=== PATIENT | female | born 1970 | race African-American/Black ===

== ENCOUNTER → 2017-02-11 | Outpatient (CLI) | payer OTHER ==
[~2017-02-11] MED LIST: DICY1TAB26 PO; DIOV80TA4 PO; GLUCTAB PO; HYDR12.56 PO; PERC5TAB12 PO
--- NOTE | 2017-02-11 12:55 | TR ---
Date Performed: 02/11/2017 Time Performed: 12:26:43 DOCTOR: Dante Ayers DRUG LIST: CLINICAL HISTORY: REASON FOR TEST: REASON FOR ENDING: OBSERVATION: CONCLUSION: Hu protocol completed. Stopped sec to exceeding target heart rate and leg fatigue . Maximum NM=077 Target HR Achieved=92.0% Maximum HY=077/78 Total Exercise Time=6:01. No reprod chest discomfort. Occassional PACs. No st depression to sugg ischemia. Normal bp response. Recovery quick and unremarkable. COMMENTS: Conclusion: Normal treadmill exercise. No evidence of ischemia.
== END ==
LOC: HCAV 12:04
PROVIDERS: ATTEND Family Medicine
DX: R07.9 Chest pain, unspecified (principal)
CPT/HCPCS: 93017

== ENCOUNTER 2018-08-21 08:02 | Observation (INO) ==
[2018-08-21] MEDS ORDERED: Heparin - SQ 10,000 UNITS/ML Vial SQ SCH (09:00)
[2018-08-21] MEDS ORDERED: Sodium Chlor 0.9% Inj 500 ML IV.CONT ONE (09:00)
[2018-08-21] MEDS ORDERED: ceFAZolin 2 GM IV; once IV.SIG SCH (09:00)
[2018-08-21] MEDS ORDERED: Metoprolol Tartrate 25 MG Tablet PO ONE (09:00)
[2018-08-21] MEDS ORDERED: Chlorhexidine Gluconate 2% 1 Pack (2 Cloths) TOPICAL ONE (09:00)
[2018-08-21] MEDS ORDERED: Sugammadex Inj 200 MG/2 ML Vial IV.PUSH ONE ×2 (13:31→16:57)
[2018-08-21] MEDS ORDERED: Lidocaine 1%/Epinephrine 1:100,000 Inj 30 ML Vial ONE (13:33)
[2018-08-21] MEDS ORDERED: fentaNYL Citrate Inj 100 MCG/2 ML Ampul ONE ×2 (15:00→19:41)
[2018-08-21] MEDS ORDERED: Ketorolac Inj 30 MG/ML (IVP) Vial IV.PUSH PRN (19:16)
[2018-08-21] MEDS ORDERED: LORazepam 0.5 MG Tablet PO PRN (19:16)
[2018-08-21] MEDS ORDERED: Dextrose 50% in Water 50 ML Vial IV.PUSH PRN (19:20)
[2018-08-21] MEDS ORDERED: KCL 20 mEq/D5W/NaCl 0.45% Inj 1,000 ML ONE (19:27)
[2018-08-21] MEDS ORDERED: Morphine Inj 4 MG/ML Vial ONE (19:41)
[2018-08-21] MEDS ORDERED: *morphine SULFATE 10 MG/ML PERIprocedure ONLY ONE ×2 (20:07→20:34)
[2018-08-21] MEDS: KCL 20 mEq/D5W/NaCl 0.45% Inj 1,000 ML IV.CONT SCH (20:15)
[2018-08-21] MEDS ORDERED: *HYDROmorphone PF Inj 1 MG/ML Ampul PERIprocedural Use ONLY ONE (20:45)
[2018-08-21] MEDS: Topiramate 25 MG Tablet PO SCH (21:37)
[2018-08-22] MEDS: Insulin NovoLOG Aspart Correctional Sugar Inj SQ SCH ×2 (00:48→05:11)
[2018-08-22] MEDS: KCL 20 mEq/D5W/NaCl 0.45% Inj 1,000 ML IV.CONT SCH (04:47)
[2018-08-22 08:00] LABS: Hematocrit 33.5 % (35.0-46.0); Hemoglobin 11.4 gm/dL (11.6-15.3); Mean Corpuscular Hemoglobin 31.8 pg (27.0-34.0); Mean Corpuscular Volume 93.7 fL (80.0-100.0); Mean Platelet Volume 7.9 fL (7.0-11.0); Platelet Count 298 th/mm3 (150-450); Red Blood Count 3.58 mil/mm3 (4.00-5.30); Red Cell Distribution Width 13.1 % (11.6-17.2); White Blood Count 10.8 th/mm3 (4.0-11.0)
--- NOTE | 2018-08-22 08:04 | P.PNONC ---
Subjective Interval history: post op day #1 patient no complaints pain controlled denies n/v Mace discontinued needs to urinate before discharge labs pending, need to be reviewed before discharge reviewed restrictions with patient Objective Vital Signs/Intake & Output: Vital Signs 08/21/18 08:59 08/21/18 19:30 08/21/18 19:45 Temperature 98.9 F 98.4 F Pulse Rate 67 79 93 H Respiratory Rate 16 15 21 Blood Pressure 150/80 H 134/68 139/65 Pulse Oximetry 97 100 100 08/21/18 20:00 08/21/18 20:15 08/21/18 20:16 Temperature Pulse Rate 84 80 Respiratory Rate 16 12 12 Blood Pressure 156/72 H 141/63 H Pulse Oximetry 100 100 08/21/18 20:30 08/21/18 21:00 08/21/18 21:17 Temperature 98.0 F 97.7 F Pulse Rate 78 80 78 Respiratory Rate 15 15 16 Blood Pressure 138/65 126/77 134/68 Pulse Oximetry 98 98 100 08/22/18 00:41 08/22/18 01:23 08/22/18 04:48 Temperature 98.3 F 98.1 F Pulse Rate 73 69 Respiratory Rate 18 18 18 Blood Pressure 125/73 112/62 Pulse Oximetry 99 95 08/22/18 05:33 Temperature Pulse Rate Respiratory Rate 16 Blood Pressure Pulse Oximetry Intake & Output 08/21/18 08/22/18 08/22/18 18:59 06:59 18:59 Intake Total 3440 / 3440 Output Total 500 / 500 Balance 2940 / 2940 Weight 108.3 kg 108 kg Intake: IV 1000 / 1000 D5W/1/2NS + KCL 20 mEq Inj 1, 1000 / 1000 000 ML @ 125 mls/hr IV.CONT . Q8H [facility] Rx#:[id number] Oral 240 / 240 Anesthesia Amount 2200 / 2200 Output: Urine 200 / 200 Estimated Blood Loss 300 / 300 Other: Weight On Admission 108.3 kg Result Diagrams: 08/22/18 06:57 08/22/18 06:57 Laboratory Results: Laboratory Results - last 24 hr 08/21/18 08/22/18 08/22/18 09:02 00:47 05:06 POC Glucose 193 H 153 H Blood Type O Positive Blood Type Recheck Not needed Antibody Screen Negative Medications: Active Medications Generic Name Dose Route Start Last Admin Trade Name Freq PRN Reason Stop Dose Admin Lactated Ringer's 1,000 mls @ 30 mls/hr 08/21/18 09:00 08/21/18 09:15 Lr 1000 Ml Inj IV.CONT 08/22/18 08:59 30 mls/hr .Q24H ONE Administration Potassium Chloride/Dextrose/Sod Cl 1,000 mls @ 125 mls/hr 08/21/18 20:00 07/30 04:47 D5w/1/2ns + Kcl 20 Meq Inj IV.CONT 125 mls/hr .Q8H SHANIA Administration Insulin Aspart 0 unit 08/22/18 00:00 08/22/18 05:11 Novolog Insulin Correctional Sugar Inj SQ 1 unit Q6HR SHANIA Administration Protocol Ketorolac Tromethamine 30 mg 08/21/18 19:16 08/22/18 00:53 Toradol Inj IV.PUSH 08/26/18 19:15 30 mg Q6H PRN Administration PAIN SCALE 1 TO 5 Oxycodone/Acetaminophen 1 tab 08/21/18 19:16 08/22/18 05:03 Percocet 5/325 Mg PO 1 tab Q4H PRN Administration PAIN SCALE 1 TO 5 Sodium Chloride 2 ml 08/21/18 21:00 08/21/18 20:32 Ns Flush IV.FLUSH Not Given BID SHANIA Topiramate 50 mg 08/21/18 21:00 08/21/18 21:37 Topamax PO 50 mg BID SHANIA Administration Objective Remarks: GENERAL: Well-nourished, well-developed patient. SKIN: Warm and dry. HEAD: Normocephalic. EYES: No scleral icterus. No injection or drainage. CARDIOVASCULAR: Regular rate and rhythm without murmurs. RESPIRATORY: Breath sounds equal bilaterally. No accessory muscle use. GASTROINTESTINAL: Abdomen soft, SS are c/d/i EXTREMITIES:teds and scds MUSCULOSKELETAL: Adequate muscle tone. NEUROLOGICAL: No obvious focal deficit. Awake, alert, and oriented x3. PSYCHIATRIC: Appropriate mood and affect; insight and judgment normal. Assessment/Plan - Plan POD #1 anticipate discharge today after fist void and labs resulted Percocet for pain, discontinued Tramadol follow up as outpt in 2 weeks for final pathology Percocet script in chart IS to be taken home and used for next few days discussed restrictions with patient Discussed with RN, patient and Dr. Foster
[2018-08-22] MEDS: Topiramate 25 MG Tablet PO SCH (08:25)
[2018-08-22 08:32] LABS: Calcium 8.2 mg/dL (8.5-10.1); Carbon Dioxide 24.3 meq/L (21.0-32.0); Potassium 3.7 meq/L (3.5-5.1)
[2018-08-22 08:53] LABS: Lymphocytes 17 % (9-44); Monocytes 2 % (0-8); Platelet Estimate Normal (Normal); Platelet Morphology Normal (Normal)
[2018-08-22] MEDS ORDERED: VALSARTAN 160 MG PO SCH (09:00)
--- NOTE | 2018-08-22 11:44 | MP ---
cc: Sommer Foster MD, Ryan R MD DATE OF OPERATION: 08/21/2018 PREOPERATIVE DIAGNOSIS: 1. Bilateral adnexal masses. 2. Multiple prior surgeries. 3. Status post prior supracervical hysterectomy. POSTOPERATIVE DIAGNOSIS: 1. Bilateral adnexal masses. 2. Multiple prior surgeries. 3. Status post prior supracervical hysterectomy. 4. Extensive intraperitoneal and pelvic adhesions. PROCEDURE PERFORMED: Robotic-assisted laparoscopic resection of bilateral ovarian masses (bilateral salpingo-oophorectomy), left ureterolysis, appendectomy, extensive lysis of adhesions. SURGEON: Sommer Foster MD EQUIPMENT VALIDATION SPECIALIST: Megan wheelchair van operator first responder. INTRAOPERATIVE CONSULT: Dr. Madhav Tijerina MD of general surgery. ANESTHESIA: General endotracheal anesthesia. ESTIMATED BLOOD LOSS: 200 mL IV FLUIDS: 2200 mL URINE OUTPUT: 300 mL HISTORY AND INDICATIONS: This is a 48-year-old female with sense of pelvic pain and pressure, as well as altered bowel function found on exam and imaging to have bilateral pelvic masses. The one on the left side, predominantly cystic and measured approximately 11 cm, the one on the right side more solid measured approximately 5 cm. She has had a history of multiple prior surgeries including an open cholecystectomy. Three prior sections supracervical hysterectomy with anticipated adhesions and history of adhesions. She has what looks like some loops of bowel stuck to the anterior abdominal wall, possible ventral hernia. Preoperatively tumor markers were normal and there was no adenopathy. No overt evidence of metastatic disease. She was counseled regarding these findings. She was in favor of surgical resection of the bilateral adnexal masses, which would include removal of the tubes and ovaries. She understands she is not yet in menopause and that will shift her to menopausal status. She is seen again in the preoperative holding area accompanied by family where the findings and plan of care are again discussed. Questions were asked and answered. She expressed good understanding and agreed to move forward with surgical management. FINDINGS: Upon entry into the peritoneal cavity, there were extensive adhesions essentially everywhere. The omentum, multiple loops of small bowel and transverse colon were adherent to the anterior abdominal wall and the lateral abdominal wall. The right ovary was retroperitonealized. The appendix was fixed to the ovary with surrounding adhesions. The left ovary was completely retroperitonealized and retrocolic in its position. The colon and colonic mesentery draped over the mass and the mass was behind the peritoneum against the left pelvic sidewall. Frozen section analysis of each ovary suggested benign entities. The appendix was removed due to its thickened fibrous appearance and its dense adhesions to the right ovary. Throughout the peritoneal surfaces despite the extensive adhesions, there were no peritoneal implants. There was no adenopathy, nothing to suggest intraperitoneal or retroperitoneal malignancy. There was a ventral hernia of several loops of small bowel, superficial hernia. They were densely fixed to the anterior abdominal wall. For this reason, I consulted Dr. Madhav Suárez to get his opinion as to whether or not extensive dissection to take down these loops of small bowel and address this asymptomatic hernia was warranted or should it be left undisturbed given asymptomatic status. Please see his op note. He sat down at the surgeon's console to evaluate and to perform some lysis of adhesion and his ultimate recommendation was to not disrupt the anatomy or try to address these hernia changes. STATEMENT OF COMPLEXITY/MODIFIER: It is estimated that 2 hours of operative time were spent taking down extensive adhesions between the omentum and loops of small bowel and the anterior abdominal wall in both the abdomen and the pelvis as well as lysing extensive adhesions in the pelvis, all of which to try to gain safe entry into the peritoneum to restore normal anatomy and to accomplish surgical objectives. Modifier should be applied accordingly. DESCRIPTION OF PROCEDURE: She was taken to the operating room and placed in dorsal lithotomy position, after general endotracheal anesthesia was administered. A timeout was undertaken. She was identified by site recognition and hospital ID bracelet and the proposed procedure was reviewed and confirmed. She was carefully positioned in padded Ab stirrups. Her arms were padded and secured to the sides. She was further secured to the operating table with egg crate padding and tape in a cross-chest over the shoulder fashion. All sites noted to be properly aligned with no malalignment or pressure points. She was prepped in sterile fashion and draped below the waist, placed in lithotomy position. Mace catheter was placed in the bladder. A sponge stick cervical manipulator was placed in the vagina. She was returned to low lithotomy position. Change of sterile gloves was undertaken and we confirmed that an orogastric tube was in the stomach on suction. With manual elevation of the abdominal wall and direct laparoscopic visualization, a 5 mm cannula was introduced into the left upper quadrant. Carbon dioxide gas was insufflated and an atraumatic entry was confirmed. There was a window of opportunity in the left lateral abdominal wall into which an 8 mm cannula was placed and then blunt dissection, sharp dissection and camera access through these 2 cannulas were used to initiate lysis of adhesions. In the left upper quadrant, the 5 mm cannula had passed through some adhesions. These were taken down with blunt and sharp dissection. The omentum and transverse colon were taken down from the midline in the right upper quadrant to mobilize these adhesions. Now a 8 mm cannula was placed in the right upper quadrant and a 12 mm cannula was placed in the midline above the umbilicus and using these additional access hubs, more adhesiolysis was carried out to remove omentum, loops of small bowel, mobilize the bowel from the anterior and lateral abdominal wall. The central densely fixed loops of small bowel and the shallow ventral hernia were left in situ pending consultative discussion with general surgery. She was placed in Trendelenburg position. Peritoneal washings were obtained for cytology. The anatomy was surveyed with findings as described above. The robotic system was brought into the operative field and attached in the usual fashion. Monopolar scissors, fenestrated bipolar forceps and ProGrasp manipulators were placed in arms 1, 2 and 3 respectively and I took my place at the surgeon's console. Dissection of the pelvis was started by mobilizing the descending and sigmoid colon away from the pelvic sidewall, dissecting the bowel and mesentery off from its overlying position of the large cystic retroperitonealized mass. Retroperitoneal dissection was then continued by opening the peritoneum. The anterior and posterior leaves of the broad ligament were opened. The residual round ligament was isolated, cauterized, and transected. Sharp dissection and blunt dissection were used circumferentially until some mobility was gained and then dissection was carried up above the level of the pelvic brim where retroperitoneal inspection allowed identification of the ureter and isolation of the infundibulopelvic ligament. A window was made in the peritoneum below the infundibulopelvic ligament and above the ureter and the infundibulopelvic ligament was isolated, cauterized, and transected at the level of the pelvic brim. As the ureter was densely adherent to the posterior lateral aspect of the mass. Sharp dissection and blunt dissection were used to free the ureter from its attachments along the course as the mass was elevated and the ureter was dissected free from its fixation such that the distal portion of the mass could be further isolated by sharp dissection of surrounding tissue until the residual utero-ovarian ligament was isolated, cauterized, and transected. This allowed complete removal of the left tube and ovary with mass, which were placed in the right pericolic gutter for later retrieval. Dr. Madhav Suárez had been consulted sat down at the surgeon's console and evaluated the anatomy, performed some lysis of adhesions in the periappendiceal region. He felt that the hernia should not be disrupted as it was asymptomatic and may be associated with morbidity in excess of benefit, but he felt that the appendix probably needs to be resected given its dense adhesions and abnormal appearance. Please see his op note for dictation. I sat down again at the surgeon's console. Retroperitoneal dissection was carried out on the right side lateral to the gonadal vessels. Lysis of adhesions were performed with sharp dissection and retroperitoneal inspection allowed identification and isolation of the right gonadal vessels. The ureter was isolated, identified. The intervening peritoneum was opened. The infundibulopelvic ligament was isolated to the level of the pelvic brim where it was cauterized and transected. Additional adhesions were taken down from the right ovary, dissecting distally until the residual fragments of the right round ligament and right uteroovarian ligament were isolated, cauterized, and transected, thereby removing the right tube and ovary placed in the right pericolic gutter for later retrieval. During lysis of adhesions, superficial serosal irritation was noted at a loop of small bowel that had been marked with a surgical clip in the mesentery. There was no enterotomy but this area was now repaired with a 3-0 Vicryl suture in interrupted fashion brought in as the instruments were exchanged for needle drivers and several interrupted 3-0 Vicryl suture was used to reinforce this area, tie the instrument, tie the needle and the needle was cut and removed. Next, further dissection was carried out to further isolate the appendix toward its base arising from the cecum. The periappendiceal fat and appendiceal artery were isolated, cauterized, and transected until the appendix was isolated at its base. Short segments of 0 silk suture were introduced. Needle drivers were used as silk suture was tied securely around the base of the appendix. A second silk suture was tied several millimeters distal to this. The appendix was then collapsed down by grasping it with an instrument to decrease the luminal size and another silk suture was placed approximately 1 cm distal to the original ties. Sharp dissection and focal cautery was used to transect the appendix. The base of the appendiceal stump as well as the specimen were cauterized with monopolar cautery and the appendix was placed in the right pericolic gutter for later retrieval. The pelvis was thoroughly irrigated. Small bleeders were rendered hemostatic with bipolar cautery. There were benign appearances to these masses and pending results from pathology, it was felt that all reasonable surgical objectives had been completed. Accordingly robotic instruments were removed. The robotic system was disengaged from the operative field. I reentered the bedside under sterile condition. The 12 mm fascial opening was extended with sharp dissection, enough to facilitate specimen delivery and a 15 mm cannula was introduced and a 15 cm EndoCatch bag was used to capture the right ovary, followed by the left ovary and the appendix were all placed in the EndoCatch bag, which was drawn close and brought to the abdominal wall The large cystic component from the left ovary was drained and this allowed it to be collapsed down. Using ring forceps, the left tube and ovary were delivered followed by the right tube and ovary, followed by the appendix, all of which were sent to histopathologist with preliminary assessment showing benign, bilateral adnexal masses. Next, each of the 3 Ray-Zachary sponges that had been placed in the peritoneal cavity each were removed through the central 15 mm cannula. Each were inspected and noted to be removed in their entirety. Visual inspection of the peritoneal cavity revealed there to be no remaining foreign objects in the peritoneal cavity. Sites were hemostatic. Preliminary counts were correct. The central fascial defect was closed with interrupted 0 Vicryl sutures using a needle pass fascial closure apparatus. The sutures were tied securely which rendered the fascia completely airtight and hemostatic. The remaining cannulas were withdrawn. Carbon dioxide gas was removed. 3-0 Vicryl subcutaneous, 3-0 Vicryl subcuticular and Steri-Strips were used to close these incisions. Placed in lithotomy position again, the sponge stick was removed from the vagina. All sites were hemostatic. There were no remaining foreign objects in the vagina. Preliminary and final counts were correct. She was returned to dorsal supine position and was pending reversal of anesthesia when I left the operating room to precede her to the postanesthesia care unit. MD Yony Barrios , 10:12 AM , 10:36 AM
== END 2018-08-22 11:30 | disposition home or self-care (01) ==
LOC: HSDI 08:02 → HSDC 08:02 → HCIN 21:09
PROVIDERS: ADMIT Obstetrics & Gynecology Gynecologic Oncology; ATTEND Obstetrics & Gynecology Gynecologic Oncology